=== PATIENT | female | born 1945 | race Caucasian/White ===

== ENCOUNTER 2016-07-06 12:31 | Inpatient (IN) | payer OTHER ==
[~2016-07-06] VITALS: Ht 157.4 cm; Wt 75.5 kg
--- NOTE | ~2016-07-06 | PR ---
[place], [place] PROGRESS NOTE NAME: REJI MENDOSA UNIT #: [id number] ROOM: 523 DOCTOR: RAMIRO MONTERO MD BIRTHDATE: [birth year] DOS: 07/10/2016 SUBJECTIVE: The patient was seen and examined on 07/10/2016. She has been comfortably resting on the bed for this patient. She has been noted with significant coughing, which has been noted to be severe and nonproductive with increased wheezing from yesterday. She has not been noted with any symptoms of chest pain or any abdominal pain. OBJECTIVE: VITAL SIGNS: For the patient which have been recorded show the temperature of the patient noted as normal, respiratory rate 20, heart rate 81, blood pressure 150/75. The pulse oxygen saturation of the patient was recorded as 97% on room air. HEENT: Showed no acute change. NECK: Supple. CARDIOVASCULAR: S1, S2 are audible. LUNGS: With diffuse expiratory wheezing noted in the lungs bilaterally. There were no crackles heard. ABDOMEN: Soft, nontender. EXTREMITIES: Show no edema, clubbing, or cyanosis. LABORATORY DATA: The BUN and creatinine were noted as normal today. IMPRESSION: The patient with acute tracheobronchitis for this patient was noted at the present time with persistent respiratory symptoms. Preliminary culture of the sputum for the patient from the shows normal karen. Final culture results were pending. The symptoms remained persistent with severe coughing without any sputum expectoration. PLAN OF TREATMENT: Bronchoscopy was suggested for this patient to help clear the mucus impaction in the major airways and mucus plug because of current ineffective cough which has been noted to be quite severe. Other supportive therapy, plan and management to be continued as well. Usual care. Supportive care and therapy, plan of management. Further treatment changes will be done based on the progression of the illness. N.p.o. past midnight status of the patient has been ordered for this patient for bronchoscopy, which was planned to be done tomorrow. [place], [place] PROGRESS NOTE NAME: REJI MENDOSA UNIT #: [id number] ROOM: 523 DOCTOR: RAMIRO MONTERO MD BIRTHDATE: [birth year] RAMIRO CARDENAS MD CM:PNTRANS [id number] 1 RAMIRO LEES MD 07/11/16 0303 interface
--- NOTE | ~2016-07-06 | PR ---
[place], [place] PROGRESS NOTE NAME: [id number] UNIT #: [id number] ROOM: 523 DOCTOR: RONALD LEES MD,RAMIRO BIRTHDATE: [birth year] DOS: 07/13/2016 PULMONARY PROGRESS NOTE SUBJECTIVE: She has been currently assessed from the GI workup for the anemia and will be undergoing endoscopy assessment. She has been noted with continued gradual reduction and improvement in symptoms of coughing, wheezing and shortness of breath at this time. Denies symptoms of abdominal pain. OBJECTIVE: VITAL SIGNS: For the patient which has been recorded shows the temperature noted as normal. The respiratory rate recorded at 20, heart rate 66, blood pressure 152/68. The pulse oxygen saturation of the patient was recorded as 97% on room air. HEENT: Examination shows head was atraumatic. Eyes, nonicterus. NECK: Supple. CARDIOVASCULAR: S1, S2 is audible. LUNGS: Noted without any crackles. Occasional wheezing was present. ABDOMEN: Soft with moderate obesity. Bowel sounds present. EXTREMITIES: Shows no edema. IMPRESSION: 1. The patient with gradual and progressive resolution of acute exacerbation of chronic obstructive pulmonary disease and acute tracheobronchitis gradually and progressively. 2. Anemia which has been currently being considered and assess for additional assessment with the endoscopy. PLAN OF TREATMENT: Continuation of current therapy, plan and management as previously. Usual care. All other supportive care, therapy, plan and management. Gradual reduction of the steroids will be continued. The dose of Solu-Medrol will be decreased to 40 mg once a day from today. RAMIRO CARDENSA MD CM:PNTRANS [id number] RAMIRO LEES MD 07/13/16 1739 interface
--- NOTE | ~2016-07-06 | O ---
[place], [place] OPERATIVE NOTE NAME: [id number] UNIT #: [id number] ROOM: 523 DOCTOR: GIACOMO BROWN MD BIRTHDATE: [birth year] DOS: 07/13/2016 GASTROENDOSCOPIC REPORT INDICATION: The patient has presented with dyspepsia, epigastric distress, undergoing investigation. PROCEDURE: Today's procedure part of investigation is panendoscopy plus biopsy. PREMEDICATION: Versed and Diprivan. SCOPE: Olympus forward-viewing gastroscope Q10 video. REPORT: After putting the patient in the left lateral position and after application of lubricant to the scope, the scope was introduced. Thereafter, under direct visualization, I advanced through the length of esophagus without difficulty. Distal esophagitis, hiatal hernia, distal esophageal erosions were noticed. Gastritis identified, this is watermelon gastritis pattern. Biopsy obtained. Duodenal bulb, second and third part within normal limits. The patient extubated, tolerated the procedure well. IMPRESSION: Watermelon gastritis, hiatal hernia, distal esophagitis and distal esophageal erosions. PLAN AND DISCUSSION: Protonix 40 mg daily would suffice, supportive management, soft diet and clinical reassessment. GIACOMO BROWN MD CM:OPRECORD:OPERATIVE NOTE [id number] GIACOMO BROWN MD 07/13/16 1719 interface
--- NOTE | ~2016-07-06 | WRIGHTHP ---
[place], [place] PATIENT HISTORY AND PHYSICAL EXAM NAME: REJI MENDOSA [facility] #: [id number] UNIT #: [id number] ROOM: H2020 DOCTOR: RUSS REYNOSO MD BIRTHDATE: [birth year] DOS: 07/06/2016 CHIEF COMPLAINTS: Shortness of breath, cough and phlegm. HISTORY OF PRESENT ILLNESS: This is 70 years old patient with known COPD, presented to the office with symptoms of respiratory failure. Her face is very pale looking and she is having difficulty in breathing. She has been short of breath for 3 days, she is bringing up phlegm and has started passing blood also with the phlegm. The patient at this time is being admitted to the hospital and she will be sent to ER as hospital beds are full. PAST MEDICAL HISTORY: Significant for: 1. Hypertension with diastolic dysfunction. 2. Hyperlipidemia. 3. COPD. 4. Osteoporosis. 5. Tobacco abuse in the past. 6. Coronary artery disease. The patient had acute inferior wall myocardial infarction on 12/12/2013. Stent was placed in RCA at [facility] by . The patient had catheterization done on 03/27/[address] Henson. 7. She has peripheral arterial disease and she has seen symptoms of intermittent claudication and tibial artery disease. The patient had seen Dr. Hardwick in 12/2013. 8. She has right knee osteoarthritis. 9. CKD with creatinine of 1.2 and EGFR was 47. The patient has left kidney atrophy as well on renal ultrasound. 10. EMG study was normal and arterial Doppler of the lower extremity was abnormal as discussed above. PAST SURGICAL HISTORY: Hysterectomy; carpal tunnel surgery; tonsillectomy and tennis elbow and steel plate in elbow, put in 03/2014. FAMILY HISTORY: Father of heart attack and mother of cancer. She has 2 sisters and 4 daughters. The 4 daughters are healthy. One brother . All sisters are healthy. She is not smoking anymore. MEDICATIONS: 1. Calcium plus vitamin D 600-200 one tablet daily. 2. Claritin-D 24 hours 10-40 mg daily. 3. Windsor, the patient is not taking that. 4. Melatonin 10 mg daily. 5. Neurontin 100 mg 3 times a day. 6. Pravachol 20 mg daily. 7. Lisinopril 10 mg daily. 8. Imdur 30 mg daily. 9. Aspirin 81 mg daily. 10. Metoprolol 25 mg twice a day. 11. Ventolin HFA 2 puffs b.i.d. p.r.n. 12. Symbicort 160/40 one inhalation twice a day. 13. Zantac 150 mg twice a day. [place], [place] PATIENT HISTORY AND PHYSICAL EXAM NAME: REJI MENDOSA [facility] #: [id number] UNIT #: [id number] ROOM: H2020 DOCTOR: RUSS REYNOSO MD BIRTHDATE: [birth year] PHYSICAL EXAMINATION: VITAL SIGNS: Blood pressure is 110/60, heart rate 75, temperature 98.8, BMI is 30.18 and oxygen saturation 98%. HEENT: Head is normocephalic and atraumatic. Eyes: Pupils are equal, round and reactive to light. Extraocular movements are intact. Ear, nose, and throat: No discharge noted. NECK: No JVD, no lymphadenopathy and no thyromegaly. CHEST: Clinically clear to auscultation bilaterally. HEART: S1 and S2, regular rate. No murmur, gallop or rub. LUNGS: The patient has decreased breath sounds and bilateral expiratory wheezes. ABDOMEN: Soft and nontender. EXTREMITIES: No cyanosis, clubbing or edema. NEUROLOGIC: No focal deficit. REVIEW OF SYSTEMS: The 10-point review of systems shows patient has nasal discharge. She has cough and wheezing. She has phlegm and hemoptysis, nausea and vomiting also. Rest of the 10-point review of systems is unremarkable. ASSESSMENT: At this time is: 1. Chronic obstructive pulmonary disease exacerbation. 2. Respiratory failure. 3. Hemoptysis. 4. Coronary artery disease. 5. Depression. The patient is off Celexa now. 6. Hypertension. 7. Peripheral vascular disease. 8. Gastroesophageal reflux disease. 9. Osteoarthritis. PLAN OF CARE: 1. The patient will be admitted to the hospital. We will get CMP, CBC with differential, sputum Gram stain culture and sensitivity and chest x-ray, PA and lateral. We will start the patient on Rocephin 1 g daily, Zithromax 500 daily and Solu-Medrol 125 mg b.i.d. Give Tylenol 500 mg before giving Solu-Medrol as the patient gets headaches from them. 2. Depression: Both Celexa and trazodone are stopped. Depression is controlled at this point. 3. Left hip pain is also controlled. The patient is not taking Windsor anymore. 4. Insomnia: We will continue melatonin. 5. For left leg pain, continue Neurontin. 6. For hyperlipidemia, continue Pravachol. 7. For hypertension, continue lisinopril. 8. For coronary artery disease, continue Imdur, aspirin and metoprolol. 9. For COPD, continue Symbicort. 10. For GERD, continue Zantac. We will follow the patient in the hospital. At this point, the patient is being [place], [place] PATIENT HISTORY AND PHYSICAL EXAM [facility]: [id number] UNIT #: [id number] ROOM: [facility] DOCTOR: RUSS REYNOSO MD BIRTHDATE: [birth year] admitted to the hospital. RUSS REYNOSO MD CM:HISPHYS:PATIENT HISTORY AND PHYSICAL EXAMINATION [phone] RUSS REYNOSO MD 07/06/16 1414 interface
--- NOTE | ~2016-07-06 | O ---
[place], [place] OPERATIVE NOTE NAME: [facility] [id number] UNIT #: [id number] ROOM: 523 DOCTOR: GIACOMO BROWN MD BIRTHDATE: [birth year] DOS: 07/13/2016 GASTROENDOSCOPIC REPORT INDICATIONS: The patient has presented with dyspepsia, epigastric distress, abdominal pain, anemia. The patient with respiratory insufficiency, status post bronchoscopy and status post management. PROCEDURE: Today's procedure part of investigation is panendoscopy and colonoscopy. PREMEDICATION: Versed and Diprivan. SCOPE: Olympus forward-viewing colonoscope 10L video. REPORT: After putting the patient in the left lateral position and after application of lubricant to rectal pouch and digital examination, scope was introduced. Thereafter, under direct visualization, I advanced through the length of colon without difficulty. Base of the cecum explored, appendiceal orifice identified, and ileocecal valve was defined. No acute pathology seen. The patient was gradually extubated and tolerated the procedure well. IMPRESSION: Normal colonoscopic examination. We are going to proceed with panendoscopy. GIACOMO BROWN MD CM:OPRECORD:OPERATIVE NOTE 1648 16 GIACOMO BROWN MD 07/13/16 171 interface
--- NOTE | ~2016-07-06 | PR ---
[place], [place] PROGRESS NOTE NAME: REJI MENDOSA UNIT #: [id number] ROOM: [facility] DOCTOR: J LUIS WAGGONER MD BIRTHDATE: [birth year] DOS: 07/14/2016 SUBJECTIVE: This patient was admitted to the hospital because of GI problems with acute bronchitis and shortness of breath. Dr. Chambers evaluated her LV function was normal. She had endoscopy done which showed esophagitis, and watermelon gastritis. She had stent deployed about 3 years ago following an acute myocardial infarction for totally occluded vessel. Daughter tells me diagnostic heart catheterization done a year later which showed patent stent and some degree of coronary stenosis. She was admitted to the hospital because of exertional shortness of breath, when I talked with her, it seems like she has some anginal symptoms as well. Couple of times she had noticed when she walked back from the garage into her house she developed right shoulder area discomfort which was relieved by rest and this is symptoms she had before stent was deployed. She has not had any resting symptoms. No palpitation, dizziness. OBJECTIVE: VITAL SIGNS: Pulse is regular. Blood pressure is fine. NECK: JVP is normal. LUNGS: Fairly clear. EXTREMITIES: There is no edema in the lower extremities. CARDIOVASCULAR: Reveals no murmurs. Blood pressure fine. LABORATORY DATA: Her troponin I level was above normal. IMPRESSION: This patient with known coronary artery disease has some exertional angina and had mildly elevated troponin I level, which may be from coronary artery stenosis; type 2 myocardial infarction, i.e., supply and demand imbalance may be responsible for this as well. I discussed my impression with Dr. Chambers and he will be talking to her nurse regarding further plan. I discussed this with her daughter as well. [place], [place] PROGRESS NOTE NAME: REJI MENDOSA UNIT #: [id number] ROOM: [facility] DOCTOR: J LUIS WAGGONER MD BIRTHDATE: [birth year] J LUIS WAGGONER MD CM:PNTRANS 0736 0928 J LUIS WAGGONER MD 07/14/16 0929 interface
--- NOTE | ~2016-07-06 | CON ---
[place], [place] REPORT OF CONSULTATION NAME: REJI MENDOSA [facility] #: [id number] UNIT #: [id number] ROOM: 523 DOCTOR: RAMIRO MONTERO MD BIRTHDATE: [birth year] DOS: 07/09/2016 PULMONARY CONSULTATION REPORT REQUESTING PHYSICIAN: Gregg Mccann M.D. REASON FOR CONSULTATION: Assess the patient for acute exacerbation of COPD. HISTORY OF PRESENT ILLNESS: This 70-year-old white female presented to the Emergency Room and admitted to the hospital on 07/06/2016. The patient has developed symptoms of increased shortness of breath associated with coughing that started 3-4 days prior to admission to the hospital. The patient was seen by the primary care physician. The patient noted with acute exacerbation of COPD and was admitted to the hospital for further medical management. The symptoms of the patient have been noted quite worse with increased wheezing, coughing and shortness breath for the patient. The patient stated symptoms have been noted partially improved in the past couple of days. However, still noted with coughing, which has been noted some. Sputum expectoration, yellowish in color this morning. The wheezing, the patient described to be decreased. Shortness of breath was also noted partially improved. She denies any symptoms of chest pain. Denies symptoms of hemoptysis. REVIEW OF SYSTEMS: CONSTITUTIONAL SYMPTOMS: Denies symptoms of fever or chills. EYES: Denies any symptoms of dryness of the eyes, discharge or pain. EARS, NOSE AND THROAT: Denies sore throat, hoarseness, otalgia, postnasal drainage or epistaxis. CARDIOVASCULAR SYSTEM: Denies anginal pain, edema or pain of the extremities for this patient or palpitations. GASTROINTESTINAL: Gastroesophageal reflux, which is noted acutely with nausea, vomiting, diarrhea, abdominal pain, hematemesis, melena and hematochezia. Denies any abnormal weight loss and history of dysphagia. GENITOURINARY: Denies dysuria, suprapubic pain or hematuria. SKIN: Denies any lesions or rashes. MUSCULOSKELETAL SYSTEM: No acute joint pain, redness or tenderness. CENTRAL NERVOUS SYSTEM: Denies dizziness, headache, diplopia and migraine headaches. Remaining systems were reviewed with the patient and they were noted all negative. PAST MEDICAL HISTORY: The patient was reported with history of: 1. COPD/centrilobular emphysema. 2. Frozen shoulder. 3. Hyperlipidemia. 4. Essential hypertension. 5. Coronary artery disease with previous myocardial infarction. 6. Osteopetrosis. PAST SURGICAL HISTORY: 1. Carpal tunnel repair. [place], [place] REPORT OF CONSULTATION [id number] UNIT #: [id number] ROOM: 523 DOCTOR: RONALD LEES MD,RAMIRO BIRTHDATE: [birth year] 2. Hysterectomy. 3. Tonsillectomy. 4. Appendectomy. 5. Cardiac catheterization and coronary stent insertion. 6. Surgery of the elbows. 7. Right wrist surgery. SOCIAL HISTORY: The patient stated that she is , has 4 children. She has been noted with history of tobacco use since the age of [age] years old, 2 packs of cigarettes per day, that was discontinued in 2013. She had worked in the for 20 years as well. FAMILY HISTORY: Both parents have been . Mother from complication related to colon cancer. History of diabetes and coronary artery disease has been described. MEDICATIONS: Home medications, which have been noted for this patient on admission, are: 1. Symbicort HFA inhaler. 2. Aspirin. 3. Calcium carbonate with vitamin D. 4. Plavix. 5. Neurontin. 6. Imdur. 7. Lisinopril. 8. Claritin-D. 9. Melatonin. 10. Metoprolol tartrate. 11. Pravastatin. 12. Zantac. DRUG ALLERGIES: THE PATIENT WAS NOTED WITH ALLERGIES TO: 1. PENICILLIN. 2. SOLU-MEDROL CAUSING MUSCLE ACHES AND HEADACHES. 3. LIDOCAINE. PHYSICAL EXAMINATION: GENERAL: This is a 70-year-old female, who has been currently sitting on the bed without any acute distress. VITAL SIGNS: Height for the patient noted as 5 feet and 2 inches, weight is 166 pounds and BMI 30.4. Other vital signs shows a normal temperature, respiratory rate of 18-20, heart rate of 72-84, blood pressure 153/85-132/74 this morning recorded, intake is 2900 mL and the output is 1700 mL and pulse oxygen saturation on room air 90%-93% saturation recorded. HEENT AND NECK: Uogk-qy-andpafju obesity. Head was atraumatic. Eyes: No icterus. Neck was supple. CARDIOVASCULAR: S1 and S2 are audible. LUNGS: For this patient noted with moderate reduction of the breath sounds and nvkd-em-vlfyjvso expiratory wheezing in the lungs. There were no crackles. ABDOMEN: Soft and nontender. Bowel sounds present. [place], [place] REPORT OF CONSULTATION NAME: REJI MENDOSA UNIT #: [id number] ROOM: 523 DOCTOR: RONALD LEES MD,RAMIRO BIRTHDATE: [birth year] CENTRAL NERVOUS SYSTEM: Cranial nerves 2 through 12 intact. No focal deficit. MUSCULOSKELETAL: No deformities. SKIN: No lesions or rashes. LABORATORY EVALUATION AND RADIOGRAPHIC EVALUATION: CBC of the patient on 07/06/2016: WBC count of 4.6, hemoglobin 11.5 and hematocrit 35.7 with normal platelet count. The lactic acid noted at 0.9. Influenza A and B nasal washing antigens were noted negative on admission on 07/06/2016. CMP on 07/06/2016 on admission: Normal BUN and creatinine and electrolytes as well as a CK-MB and troponin. The CBC of the patient that was done yesterday: WBC count was 14.2, hemoglobin 10.9, hematocrit 33.9 and platelet count was normal. The blood cultures reported no bacterial growth for the patient since admission on 07/06/2016. CBC of the patient this morning: WBC count is 15.7, hemoglobin 10.7, hematocrit 33.6 and platelet count is normal. The culture of the sputum preliminary was pending rather. Gram stain of 07/08/2016 for this patient noted with many white blood cells, moderate epithelial cells and moderate Gram-positive cocci in pairs, chains and clusters. Chest x-ray of the patient that was done for the patient, 2 view, on 07/06/2016 was noted with hyperinflation without any acute pulmonary infiltration. IMPRESSION: 1. This is a patient who I am currently treating with acute exacerbation of chronic obstructive pulmonary disease with acute tracheobronchitis. The patient reported pathology to Solu-Medrol, but currently getting Solu-Medrol at 125 mg b.i.d. without any acute side effects at this time noted. 2. History of previous nicotine abuse for the patient until 2013. 3. History of coronary artery disease and others. 4. Leukocytosis related to use of the corticosteroids. PLAN OF TREATMENT: Reduce the Solu-Medrol dose for the patient gradually based on the improvement in the symptoms. Monitor results of the sputum culture. Continue bronchodilators administration. Further treatment changes will be done based on the progression of the illness. The patient has been getting broad spectrum intravenous antibiotics including meropenem and vancomycin that might need to be step down for this patient for the coverage of very broad spectrum intravenous antibiotics based on the culture results and modification. Other supportive therapy, plan and management to be continued. Usual care. If necessary, consider fiberoptic bronchoscopy for patient for further assessment of current problem if agreed by the patient. Thank you for allowing me to participate in the care of this patient. [place], [place] REPORT OF CONSULTATION NAME: REJI MENDOSA UNIT #: [id number] ROOM: 523 DOCTOR: RAMIRO MONTERO MD BIRTHDATE: [birth year] RAMIRO CARDENAS MD CM:CONSTR:REPORT OF CONSULTATION 1550 07/10/16 1010 interface
--- NOTE | ~2016-07-06 | PR ---
[place], [place] PROGRESS NOTE NAME: REJI MENDOSA [facility] #: [id number] UNIT #: [id number] ROOM: 523 DOCTOR: YANELIS GARCIA MD BIRTHDATE: [birth year] DOS: She is admitted to hospital with acute exacerbation of COPD with emphysema with centrilobular pneumonia, frozen shoulder, hyperlipidemia, essential hypertension, coronary heart disease, and osteoporosis. The patient is having more wheezing today having bilateral rhonchi and occasional crepitation and has been seen by Dr. Núñez, multimedia teacher and who is planning to do her bronchoscopy tomorrow. Her sputum culture and sensitivity grew normal bacteria. Creatinine level is 1.1 and GFR is 55, improvement and her blood pressure is 134/80, pulse is 81, respirations 20, temperature 98.2. The patient is not showing much improvement with the bronchoscopy tomorrow. This patient has encouraged to follow. YANELIS GARCIA MD CM:PNTRANS 1414 YANELIS GARCIA MD 07/11/16 0218 interface
--- NOTE | ~2016-07-06 | PR ---
[place], [place] PROGRESS NOTE NAME: REJI MENDOSA UNIT #: [id number] ROOM: 523 DOCTOR: RAMIRO MONTERO MD BIRTHDATE: [birth year] DOS: SUBJECTIVE: She was seen and examined on 07/12/2016. She has been noted with reduction of the respiratory complaints for the patient after the bronchoscopy of yesterday with removal of multiple plugs of mucus. Shortness of breath has been also improving. The wheezing has been noted decreased. OBJECTIVE: VITAL SIGNS: Normal temperature, respiratory rate 20, heart rate of 88, blood pressure 140/72. HEENT: Shows no acute change. NECK: Supple. CARDIOVASCULAR SYSTEM: S1, S2 is audible. No added sounds. LUNGS: Noted with mild expiratory wheezing noted in lungs bilaterally with improvement in air entry in general. No crackles. ABDOMEN: Soft, nontender. LABORATORY DATA: CBC: WBC count was normal, hemoglobin 10.8, hematocrit 33.8, platelet count was normal. Barium culture of the bronchial washing was noted as normal karen of the patient. Final culture results were pending. BMP: BUN 26, creatinine was normal. Glucose mildly elevated. Gram stain of the bronchial washing was yesterday with moderate white blood cells, few epithelial cells without any organisms seen. IMPRESSION: 1. Resolving acute exacerbation of chronic obstructive pulmonary disease, acute tracheobronchitis with reduction of respiratory symptoms were noted after the bronchoscopy. 2. Acute bronchitis as well. PLAN OF TREATMENT: Reduce the Solu-Medrol dose for this patient to 40 mg b.i.d. 160 mg b.i.d. Monitoring culture results. The patient was encouraged about ambulation. Other supportive therapy, plan of management as well. Usual treatment plan of care. [place], [place] PROGRESS NOTE NAME: REJI MENDOSA UNIT #: [id number] ROOM: 523 DOCTOR: RAMIRO MONTERO MD BIRTHDATE: [birth year] RAMIRO CARDENAS MD CM:PNTRANS 1017 1210 RAMIRO LEES MD 07/12/16 1211 interface
--- NOTE | ~2016-07-06 | PR ---
[place], [place] PROGRESS NOTE NAME: REJI MENDOSA [facility] #: [id number] UNIT #: [id number] ROOM: 523 DOCTOR: YANELIS GARCIA MD BIRTHDATE: [birth year] DOS: 07/09/2016 SUBJECTIVE: The patient has been admitted to the hospital with acute COPD, emphysema with acute exacerbation, hypertension, hyperlipidemia, and coronary heart disease, and she is feeling better. She does not seem to be in any distress and no chest pain. Her sputum culture showed many white blood cell, moderate epithelial cells. Culture report is pending. CBC showed white count 15,700, hemoglobin 10.7, hematocrit 33.6, 83% , 7%, lymphocyte and 13% neutrophils. Blood culture did not grow any bacteria, and the patient is showing improvement. OBJECTIVE: VITAL SIGNS: Blood pressure is 148/80, pulse 72, respirations 20, temperature 97.5. CHEST: Occasional rhonchi with increased expiration. No crepitation. HEART: Regular. ABDOMEN: Soft. YANELIS GARCIA MD CM:PNTRANS [id number] YANELIS GARCIA MD 07/10/16 0034 interface
--- NOTE | ~2016-07-06 | CON ---
[place], [place] REPORT OF CONSULTATION NAME: REJI MENDOSA [facility] #: [id number] UNIT #: [id number] ROOM: 523 DOCTOR: GIACOMO BROWN MD BIRTHDATE: [birth year] DOS: 07/10/2016 GASTROENDOSCOPIC REPORT HISTORY OF PRESENT ILLNESS: A 70-year-old who has presented with respiratory insufficiency, shortness of breath, cough, and cold symptomatology. The patient has symptoms of acid reflux. The patient has been started on PPI, and she has significantly responded to PPI therapy. Her initial white blood cell was 4.6, H and H of 11 and 35. Differential within normal limits. Lactic acid is 0.9. Comprehensive metabolic panel, electrolyte balance, BUN and creatinine, and liver function tests were within normal limits. She continued with cough and cold symptomatology. Pulmonary Medicine, Dr. Núñez, has been consulted, and plans for a bronchoscopy. Initial H and H were 11.5 and 35, has dropped to 10 and 33, which are stable. Blood cultures have been unremarkable. Labs and records have been reviewed. Sputum culture has been sent. BUN and creatinine of 22 and 1.0. PAST MEDICAL HISTORY: Associated with COPD, coronary artery disease, hypertension, obesity, myocardial infarction, osteoporosis, and persistent dyspepsia. PAST SURGICAL HISTORY: Associated with hysterectomy, tonsillectomy, carpal tunnel, right wrist repair, appendectomy, cardiac stents. SOCIAL HISTORY: Nonalcohol consumer. Past smoker. FAMILY HISTORY: Noncontributory. REVIEW OF SYSTEMS: HEENT: Denies double vision, blurred vision. RESPIRATORY: Admits to shortness of breath. CARDIOVASCULAR: Denies chest pain. DIGESTIVE SYSTEM: Persistent dyspepsia, on ranitidine 75 mg b.i.d. The patient has been as well on multi other medications reviewed. PHYSICAL EXAMINATION: VITAL SIGNS: Stable. HEENT: Head is normocephalic, nontraumatic. Mouth and buccal mucosa are benign. NECK: Supple, no thyromegaly. CHEST: Symmetric anatomy, anteroposterior wheeze, cough. HEART: Normal sinus rhythm, no gallop, no murmur. ABDOMEN: Obese, soft. No hepato-organomegaly. Bowel sounds present. EXTREMITIES: No cyanosis, no pedal edema. NEUROLOGIC: Alert and oriented to time, place, and person. Sensory, motor intact. Cranial nerves 2-12 intact. IMPRESSION: Reflux symptomatology, dyspepsia. The patient has been kept on Protonix in the hospital, her symptomatology has responded. The patient with a history of chronic obstructive pulmonary disease, persistent cough, is [place], [place] REPORT OF CONSULTATION NAME: REJI MENDOSA UNIT #: [id number] ROOM: 523 DOCTOR: GIACOMO BROWN MD BIRTHDATE: [birth year] undergoing a bronchoscopy tomorrow hopefully. Other adjunctive diagnoses are hypertension, coronary artery disease, chronic obstructive pulmonary disease, hyperlipidemia, hypertension have been all recognized. PLAN AND DISCUSSION: I will await bronchoscopy and pulmonary stabilization before we consider a future endoscopic assessment of upper tract for persistent dyspepsia. Meanwhile, we will keep her on Protonix 40 mg p.o. as outpatient when she is discharged. GIACOMO BROWN MD CM:CONSTR:REPORT OF CONSULTATION 1311 07/11/16 0048 interface
--- NOTE | ~2016-07-06 | CON ---
[place], [place] REPORT OF CONSULTATION NAME: REJI MENDOSA [facility] #: [id number] UNIT #: [id number] ROOM: 523 DOCTOR: SIOMARA ANDREW MD BIRTHDATE: [birth year] DOS: 07/13/2016 HISTORY OF PRESENT ILLNESS: The patient is a 70-year-old patient apparently being asked for evaluation of shortness of breath. A 70-year-old female apparently with a history of significant peripheral arterial disease, status post intervention with COPD. The patient admitted with significant shortness of breath. The patient has been here for the last almost one week now. The patient was admitted with wheezing and coughing and continued shortness of breath. I was consulted for cardiac evaluation of patient. I did a stat echocardiogram, and I reviewed at the bedside done today showed an excellent ejection fraction of about 60-65%. Small posterior pericardial effusion, right ventricular systolic function is also preserved. No significant mitral regurgitation. No obvious pulmonary hypertension. PAST MEDICAL HISTORY: COPD, emphysema, frozen shoulder, hyperlipidemia, peripheral arterial disease, coronary artery disease with previous CA with no evidence of any wall motion abnormalities. PAST SURGICAL HISTORY: Appendectomy, cardiac catheterization and coronary stent insertion, wrist surgery. SOCIAL HISTORY: The patient has a history of heavy tobacco abuse since age of 30. Two packs per day and discontinued in 2013. HOME MEDICATIONS: Aspirin, Plavix, Imdur, lisinopril, pravastatin, metoprolol, and Zantac. ALLERGIES: PENICILLIN. REVIEW OF SYSTEMS: CONSTITUTIONAL: No fever, no chills. HEENT: No visual disturbances or hearing problems. CARDIOVASCULAR: No chest discomfort. RESPIRATORY: Does have significant shortness of breath. GASTROINTESTINAL: No nausea, no vomiting. GENITOURINARY: No dysuria, hematuria. PHYSICAL EXAMINATION: VITAL SIGNS: Blood pressure today is 150/80. She is in sinus rhythm. HEENT: Unremarkable. NECK: Supple, no JVD. LUNGS: Good air entry, very minimal wheezing. HEART: Sounds are regular. ABDOMEN: Soft, nontender. NEUROLOGIC: Stable. LABORATORY DATA: Reviewed the echocardiogram at the bedside showed an excellent ejection fraction, no wall motion abnormalities. Sodium 142, potassium 4.3, creatinine is normal. Hemoglobin 10.8, hematocrit 33.8, platelet count is normal. Echo showed an excellent ejection fraction. [place], [place] REPORT OF CONSULTATION NAME: REJI MENDOSA [facility] #: [id number] UNIT #: [id number] ROOM: 523 DOCTOR: SIOMARA ANDREW MD BIRTHDATE: [birth year] IMPRESSION: The patient with known coronary artery, hypertension, hyperlipidemia, dyspepsia. Her last hemoglobin is 10.5. The patient to undergo EGD today. RECOMMENDATIONS: Continue the present care. Continue the beta blockers, continue the lipid lowering agents. Continue aspirin and Plavix when it is feasible. Cardiac status is stable, and we will followup. The patient has significant peripheral arterial disease and needs another intervention, which will be assessed at a later date. SIOMARA ANDREW MD CM:CONSTR:REPORT OF CONSULTATION 0957 07/13/16 1038 interface
--- NOTE | ~2016-07-06 | PR ---
[place], [place] PROGRESS NOTE NAME: REJI MENDOAS [facility] #: [id number] UNIT #: [id number] ROOM: [facility] DOCTOR: RONALD LEES MD,RAMIRO BIRTHDATE: [birth year] DOS: 07/14/2016 The patient was noted on 07/14/2016. She had developed hypotension yesterday. The patient initially developed chest pain and was given the nitroglycerin tablet. For the hypertension management she was transferred to intensive care unit. Cardiac enzymes were noted which appeared to be 2/3 sets. The patient noted with mild elevation in troponin. Blood pressure of the patient has been resolved at this time. There are no symptoms of chest pain or abdominal pain. She ____ endoscopy for the patient that was done by Dr. Gusman yesterday. Watermelon gastritis noted ____ induced esophagitis and esophageal erosions with the endoscopy. This morning, the patient has been noted comfortable at this time. OBJECTIVE: VITAL SIGNS: Normal temperature, respiratory rate 19, heart rate 66, blood pressure 104/54. Pulse oxygen saturation of the patient on room air, noted 97% on 3 liters nasal cannula 99% saturation. HEENT: Showed no acute change. NECK: Supple. CARDIOVASCULAR: S1, S2 audible. LUNGS: noted without any crackles. No wheezing. ABDOMEN: Soft, nontender. LABORATORY DATA: Troponin yesterday for the patient first set was noted normal. CPK normal, second set of CK-MB and troponin yesterday and troponin mildly elevated at 0.108. The last troponin for the patient which were done this morning, the troponin noted minimal elevation 0.079. CK-MB, troponin remains normal in all of the labs. IMPRESSION: Possibility of non-ST segment elevation myocardial infarction with angina resolving acute exacerbation of chronic obstructive pulmonary disease with acute tracheobronchitis progressively. PLAN OF TREATMENT: No changes in plan of management from pulmonary standpoint, the patient already getting Solu-Medrol 40 mg, which will be further tapered patient upon discharge, the patient has been currently planned for transfer to one of the hospitals in [place], [place] as requested by the patient and the family members request. In the meantime, continue current supportive plan and management as well. Usual care. All other treatment as in progress. [place], [place] PROGRESS NOTE NAME: REJI MENDOSA UNIT #: [id number] ROOM: [facility] DOCTOR: RAMIRO MONTERO MD BIRTHDATE: [birth year] RAMIRO CARDENAS MD CM:PNTRANS [id number] RAMIRO LEES MD 07/14/16 1122 interface
--- NOTE | ~2016-07-06 | CON ---
[place], [place] REPORT OF CONSULTATION NAME: REJI MENDOSA UNIT #: [id number] ROOM: 523 DOCTOR: KEVIN BROOKSGIACOMO BIRTHDATE: [birth year] DOS: GASTROENDOSCOPIC REPORT HISTORY OF PRESENT ILLNESS: The patient presented with chief complaint of shortness of breath and dyspepsia; on steroids and antibiotics. Initially, she was admitted with white blood cell of 4.6, H and H of 11 and 35. Lactic acid of 0.9. Rapid troponin and flu negative. Comprehensive metabolic panel, electrolytes balanced. Liver function test normal. Troponin within normal limits. Chest x-ray, no acute cardiopulmonary process was noticed. Urine culture is negative. Blood cultures remain negative. PAST MEDICAL HISTORY: Associated with hyperlipidemia, COPD, hypertension, osteoporosis, coronary artery disease, peripheral vascular disease, and chronic renal insufficiency. FAMILY HISTORY: Noncontributory. PAST SURGICAL HISTORY: Carpal tunnel, tonsillectomy, hysterectomy, elbow repair. MEDICATIONS: List has been reviewed. The patient has been on Zantac 150 mg b.i.d. ALLERGIES: TO LIDOCAINE, PENICILLIN AND SOLU-MEDROL. REVIEW OF SYSTEMS: In general: HEENT: Denies double vision or blurred vision. RESPIRATORY: Admits to shortness of breath. CARDIOVASCULAR: Denies chest pain. DIGESTIVE SYSTEM: Dyspepsia. PHYSICAL EXAMINATION: VITAL SIGNS: Stable. HEENT: Head normocephalic, nontraumatic. Mouth and buccal mucosa benign. NECK: Supple. No thyromegaly, no cervical lymphadenopathy. CHEST: Symmetric anatomy, equal expansion. Few scattered rhonchi. HEART: Normal sinus rhythm, no gallop, no murmur. ABDOMEN: Soft. No hepato-organomegaly. Bowel sounds present. No pulsatile mass. EXTREMITIES: No cyanosis. No pedal edema. NEUROLOGIC: Alert, oriented to time, place and person. IMPRESSION: Dyspepsia secondary to multi-medications including aspirin and steroids. OTHER ADJUNCTIVE DIAGNOSES: Bronchitis as identified in past medical and surgical history. PLAN AND DISCUSSION: Keeping this patient on Protonix 40 mg IV every day, [place], [place] REPORT OF CONSULTATION NAME: REJI MENDOSA UNIT #: [id number] ROOM: 523 DOCTOR: KEVIN BROOKS,GIACOMO BIRTHDATE: [birth year] addition of Carafate 1 g q.i.d. while inpatient and to staff genetic counselor the adverse effects of steroids and aspirin on her. Supportive management and follow up on H and H. We are going to make arrangement for this patient as outpatient to follow up for colonic screening as well as dyspepsia management. Thank you very much indeed. Sincerely, GIACOMO BROWN MD CM:CONSTR:REPORT OF CONSULTATION 2352 07/11/16 0647 interface
--- NOTE | ~2016-07-06 | PROC NOTE ---
[place], [place] PROCEDURE NOTE [id number] #: [id number] ROOM: 523 DOCTOR: RONALD LEES MD,RAMIRO BIRTHDATE: [birth year] DOS: 07/11/2016 BRONCHOSCOPY NOTE PREOPERATIVE DIAGNOSES: The patient with persistent severe nonproductive cough with wheezing with maximum medical therapy for exacerbation of chronic obstructive pulmonary disease. POSTOPERATIVE DIAGNOSES: Multiple large plugs of mucous were removed from the endobronchial tree bilaterally causing the impaction of the endobronchial subsegments with findings of acute tracheobronchitis. PROCEDURE DESCRIPTION: Informed consent was obtained for the patient. The patient brought to the OR, placed in supine position. Conscious sedation administered by the Anesthesia Department. After achieving proper sedation, airway introduced into the mouth. Bronchoscope advanced into airway into laryngeal area. Epiglottis and vocal cords were seen. Bronchoscope advanced to vocal cord and tracheal lumen. Tracheal lumen for the patient was identified for this patient shows moderate amount of very thick mucoid secretions with small purulent secretion mixture. It was suctioned out to the rosemarie level. Right upper, right middle, right lower, left upper, lingula, and lower lobe bronchi were all examined, noted moderate to thick large plugs of the mucus causing impaction of the endobronchial subsegments bilaterally. All the secretions suctioned out clear with the help of normal saline wash, sent for culture. Procedure well tolerated by the patient without complications. Postoperative findings were discussed with the patient's daughter in the recovery room after the completion of procedure. RAMIRO CARDENAS MD CM:PROCNOTE:PROCEDURE NOTE 1214 [id number] RAMIRO LEES MD
--- NOTE | ~2016-07-06 | PR ---
[place], [place] PROGRESS NOTE [facility]: [id number] UNIT #: [id number] ROOM: 523 DOCTOR: RONALD LEES MD,RAMIRO BIRTHDATE: [birth year] DOS: 07/11/2016 SUBJECTIVE: The patient was seen and examined 07/11/2016. Currently noted n.p.o. past midnight. Bronchoscopy planned today. Continue with symptoms of significant wheezing, coughing and shortness of breath with current medical management. Denied symptoms of chest pain or any abdominal pain. OBJECTIVE: VITAL SIGNS: For the patient which were recorded showed the temperature of the patient noted as normal, respiratory rate of 17, heart rate of 69, blood pressure of 150/86. HEENT: Examination showed no acute change. NECK: Supple. CARDIOVASCULAR SYSTEM: S1, S2 is audible. LUNGS: Showed diffuse expiratory wheezing. The patient remains persistent. ABDOMEN: Soft, nontender, bowel sounds present. LABORATORY DATA: Culture of the sputum for the patient from the 10th of this month shows normal karen. PT, PTT for the patient and the platelet functions, which were done yesterday were noted all normal. IMPRESSION: Ongoing acute exacerbation of chronic obstructive pulmonary disease with acute tracheobronchitis. The patient has persistent respiratory symptoms with current maximal medical therapy. PLAN OF TREATMENT: Proceed with the bronchoscopy as planned. No other change in treatment at this time will be necessary. Other supportive plan of therapy, care management, any modification in the treatment plan to be done after bronchoscopy. RAMIRO CARDENAS MD CM:PNTRANS [id number] RAMIRO LEES MD 07/12/16 0152 interface
[~2016-07-06 12:31] MED LIST: ALBUTEROL0.09 MG/A1 IH; ALPHAGAN 5 ML5 ML OP; ASPIRIN81 M1 PO; ATIVAN1 MG PO; AZOPT 1% 10 ML5 ML INTRAOC; BACTRIM DS 8001 TA1 PO; BESIVANCE 5 ML5 ML OP; BP; CALCIUM500 MG PO; CIPRO500 MG PO; CLARITIN10 MG PO; CLOPIDOGREL75 MG PO; COMBIGAN 0.2%-010 ML OP; CORDROL20 MG PO; CRESTOR10 MG PO; CYMBALTA20 MG PO; DARVOCET N 1001 TAB PO; DELTASONE10 MG PO; DOXYCYCLINE100 M3 PO; DUONEB 3 MG/3 ML3 M1 NEB; DUONEB 3ML 3 MG/3 ML INH; DUREZOL 5 ML5 ML OP; FLEXERIL5 MG PO; HYDROCODONE BIT1 T11 PO; IMDUR SA30 MG PO; ISOSORBIDE DINI20 MG PO; LEVOFLOXACIN500 MG PO; LISINOPRIL HCTZ1 TA1 PO; LISINOPRIL/HCTZ1 TA4 PO; LISINOPRIL/HYDR1 TA1 PO; LISINOPRIL5 MG PO; Lopressor25 MG PO; METOPROLOL SUCC50 MG PO; METOPROLOL25 MG PO; MOTRIN800 MG PO; NAPROXEN220 MG PO; PLAVIX75 MG PO; PRAVASTATIN SOD10 MG PO; PRAVASTATIN SOD20 MG PO; PREDNISONE20 MG PO; PROLENSA3 ML OP; PROTONIX40 MG PO; SEPTRA DS 800 M1 TAB PO; SYMBICORT1 AE1 IH; SYMBICORT1 AE1 INH; TOPROL XL50 M1 PO; TYLENOL W/CODE480 ML PO; VICODIN 5-3001 EACH PO; VICODIN 5/500 505 MG PO; ZANTAC 7575 M1 PO; ZESTRIL10 MG PO; ZOLPIDEM10 MG PO
[2016-07-06] MEDS ORDERED: CLOPIDOGREL75 MG PO (12:37)
[2016-07-06] MEDS ORDERED: IMDUR SA30 MG PO (12:38)
[2016-07-06 13:15] LABS: BASO % 0.9 % (0.0-1.0); EOS # 0.4 10*3/uL (0.0-0.4); EOS % 7.9 % (1.0-4.0); HEMATOCRIT 35.7 % (37.0-47.0); HEMOGLOBIN 11.5 g/dl (12.0-16.0); LYMPH % 22.4 % (27.0-41.0); MEAN CELL VOLUME 89.7 fl (81.0-99.0); MEAN CORPUSCULAR HGB 28.9 pg (27.0-31.0); MEAN CORPUSCULAR HGB CONC 32.2 g/dl (33.0-37.0); MEAN PLATELET VOLUME 9.6 fl (9.6-12.3); MONO # 0.6 10*3/uL (0.1-1.0); MONO % 12.7 % (3.0-9.0); NEUT # 2.5 10*3/uL (2.3-7.9); NEUT % 55.2 % (47.0-73.0); PLATELET COUNT AUTOMATED 260 10*3/uL (130-400); RED BLOOD COUNT 3.98 10*6/uL (4.10-5.10); RED CELL DISTRI WIDTH 13.4 % (0-14.5); WHITE BLOOD COUNT 4.6 10*3/uL (4.8-10.8)
[2016-07-06 13:31] LABS: BILIRUBIN NEGATIVE (NEGATIVE); BLOOD 1+ (NEGATIVE); CLARITY CLEAR (CLEAR); COLOR YELLOW (YELLOW); GLUCOSE NEGATIVE (NEGATIVE); KETONE NEGATIVE (NEGATIVE); LEUKO ESTERASE NEGATIVE (NEGATIVE); NITRITE NEGATIVE (NEGATIVE); PH 6.5 (5.0-9.0); PROTEIN NEGATIVE (NEGATIVE); UROBILINOGEN 0.2 E.U./dl (0.2-1.0)
[2016-07-06 13:35] LABS: ALBUMIN 3.4 gm/dl (3.1-4.5); ALKALINE PHOSPHATASE 81 U/L (45-117); BILIRUBIN, TOTAL 0.2 mg/dl (0.2-1.0); BUN 16 mg/dl (7-24); CARBON DIOXIDE 25 mmol/L (21-32); CHLORIDE 107 mmol/L (98-107); EST GLOM FILT AFRICAN AMERICAN > 60 ml/min; GLUCOSE 96 mg/dL (65-99); POTASSIUM 4.2 mmol/L (3.5-5.1); SGOT/AST 24 IU/L (3-35); SGPT/ALT 60 U/L (12-78); SODIUM 142 mmol/L (136-145); TOTAL PROTEIN 6.9 gm/dL (6.4-8.2)
[2016-07-06 13:40] LABS: TROPONIN I < 0.015 ng/ml (<0.045)
[2016-07-06 14:05] LABS: URINE REFLEX COMMENT YES (NO); WBC 0-2 wbc/hpf (0-5)
[2016-07-06] MEDS ORDERED: CALCIUM + D3 E1 EACH PO (17:44)
[2016-07-06] MEDS ORDERED: MELATONIN10 M4 PO (17:45)
[2016-07-06] MEDS ORDERED: CLARITIN-D 24 H1 TAB PO (17:45)
[2016-07-06] MEDS ORDERED: NEURONTIN100 MG PO (17:46)
[2016-07-06] MEDS ORDERED: ZANTAC 150150 MG PO (17:47)
[2016-07-07 09:57] LABS: CKMB 1.7 ng/ml (0.5-3.6); CPK 109 U/L (26-192); LDH 176 U/L (84-246)
[2016-07-07 09:58] LABS: TROPONIN I < 0.015 ng/ml (<0.045)
[2016-07-08 06:57] LABS: BASO % 0.1 % (0.0-1.0); HEMATOCRIT 33.9 % (37.0-47.0); HEMOGLOBIN 10.9 g/dl (12.0-16.0); IG # 0.2 10*3/uL (0.0-0.1); LYMPH # 1.2 10*3/uL (1.3-4.4); LYMPH % 8.3 % (27.0-41.0); MEAN CELL VOLUME 89.7 fl (81.0-99.0); MEAN CORPUSCULAR HGB 28.8 pg (27.0-31.0); MEAN CORPUSCULAR HGB CONC 32.2 g/dl (33.0-37.0); MONO # 0.7 10*3/uL (0.1-1.0); MONO % 4.7 % (3.0-9.0); NEUT # 12.1 10*3/uL (2.3-7.9); NEUT % 85.2 % (47.0-73.0); PLATELET COUNT AUTOMATED 298 10*3/uL (130-400); RED BLOOD COUNT 3.78 10*6/uL (4.10-5.10); RED CELL DISTRI WIDTH 13.6 % (0-14.5); WHITE BLOOD COUNT 14.2 10*3/uL (4.8-10.8)
[2016-07-09 06:10] LABS: HEMATOCRIT 33.6 % (37.0-47.0); HEMOGLOBIN 10.7 g/dl (12.0-16.0); MEAN CELL VOLUME 91.1 fl (81.0-99.0); MEAN CORPUSCULAR HGB CONC 31.8 g/dl (33.0-37.0); MEAN PLATELET VOLUME 10.5 fl (9.6-12.3); PLATELET COUNT AUTOMATED 293 10*3/uL (130-400); RED BLOOD COUNT 3.69 10*6/uL (4.10-5.10); RED CELL DISTRI WIDTH 13.7 % (0-14.5); WHITE BLOOD COUNT 15.7 10*3/uL (4.8-10.8)
[2016-07-09 07:51] LABS: LYMPHOCYTE # 1.1 10*3/uL (1.3-4.4); METAMYELOCYTES 1 % (0-0); MONOCYTE # 1.3 10*3/uL (0.1-1.0); MYELOCYTES 1 % (0-0); NEUTROPHILS 83 % (47-73); PLATELET SUFFICIENCY NORMAL (NORMAL); TOTAL CELLS COUNTED 100 #CELLS
[2016-07-10 06:31] LABS: BUN 22 mg/dl (7-24); EST GLOM FILT AFRICAN AMERICAN > 60 ml/min
[2016-07-10 13:54] LABS: PROTHROMBIN TIME 10.3 SECONDS (9.0-12.4)
[2016-07-10 15:57] LABS: COL/EPI 155 SECONDS (86-157)
[2016-07-12 07:41] LABS: HEMATOCRIT 33.8 % (37.0-47.0); HEMOGLOBIN 10.8 g/dl (12.0-16.0); MEAN CELL VOLUME 89.4 fl (81.0-99.0); MEAN CORPUSCULAR HGB 28.6 pg (27.0-31.0); MEAN PLATELET VOLUME 10.1 fl (9.6-12.3); NUCLEATED RED BLOOD CELL 0.2 % (0.0-0.0); PLATELET COUNT AUTOMATED 308 10*3/uL (130-400); RED BLOOD COUNT 3.78 10*6/uL (4.10-5.10); RED CELL DISTRI WIDTH 13.5 % (0-14.5); WHITE BLOOD COUNT 10.4 10*3/uL (4.8-10.8)
[2016-07-12 08:01] LABS: METAMYELOCYTES 4 % (0-0); MONOCYTE # 0.3 10*3/uL (0.1-1.0); MYELOCYTES 2 % (0-0); NEUTROPHIL # 8.4 10*3/uL (2.3-7.9); NEUTROPHILS 81 % (47-73); PLATELET SUFFICIENCY NORMAL (NORMAL); TOTAL CELLS COUNTED 100 #CELLS
[2016-07-12 08:07] LABS: BUN 26 mg/dl (7-24); CARBON DIOXIDE 27 mmol/L (21-32); CHLORIDE 105 mmol/L (98-107); EST GLOM FILT AFRICAN AMERICAN > 60 ml/min; GLUCOSE 166 mg/dL (65-99); POTASSIUM 4.3 mmol/L (3.5-5.1); SODIUM 142 mmol/L (136-145)
[2016-07-12 15:09] LABS: ACID FAST SPEC PROCESSING Concentration (.)
[2016-07-13 06:12] LABS: HEMATOCRIT 32.2 % (37.0-47.0); HEMOGLOBIN 10.5 g/dl (12.0-16.0); MEAN CELL VOLUME 89.7 fl (81.0-99.0); MEAN CORPUSCULAR HGB 29.2 pg (27.0-31.0); MEAN CORPUSCULAR HGB CONC 32.6 g/dl (33.0-37.0); MEAN PLATELET VOLUME 10.1 fl (9.6-12.3); PLATELET COUNT AUTOMATED 309 10*3/uL (130-400); RED BLOOD COUNT 3.59 10*6/uL (4.10-5.10); RED CELL DISTRI WIDTH 13.6 % (0-14.5); WHITE BLOOD COUNT 11.9 10*3/uL (4.8-10.8)
[2016-07-13 06:37] LABS: BUN 22 mg/dl (7-24); CARBON DIOXIDE 28 mmol/L (21-32); CHLORIDE 109 mmol/L (98-107); EST GLOM FILT AFRICAN AMERICAN > 60 ml/min; GLUCOSE 121 mg/dL (65-99); POTASSIUM 4.4 mmol/L (3.5-5.1); SODIUM 144 mmol/L (136-145)
[2016-07-13 06:38] LABS: LYMPHOCYTE # 1.4 10*3/uL (1.3-4.4); METAMYELOCYTES 2 % (0-0); MONOCYTE # 0.5 10*3/uL (0.1-1.0); MYELOCYTES 2 % (0-0); NEUTROPHIL # 9.4 10*3/uL (2.3-7.9); NEUTROPHILS 79 % (47-73); PLATELET SUFFICIENCY NORMAL (NORMAL); PROMYELOCYTES 1 % (0-0); TOTAL CELLS COUNTED 100 #CELLS
[2016-07-13 20:31] LABS: CKMB 2.5 ng/ml (0.5-3.6); TROPONIN I 0.032 ng/ml (<0.045)
[2016-07-14 00:03] LABS: CKMB 2.4 ng/ml (0.5-3.6)
[2016-07-14 00:10] LABS: TROPONIN I 0.108 ng/ml (<0.045)
[2016-07-14 05:55] LABS: CKMB 1.7 ng/ml (0.5-3.6)
[2016-07-14 05:59] LABS: TROPONIN I 0.079 ng/ml (<0.045)
[2016-07-14 12:28] LABS: BUN 20 mg/dl (7-24); CARBON DIOXIDE 25 mmol/L (21-32); CHLORIDE 111 mmol/L (98-107); EST GLOM FILT AFRICAN AMERICAN > 60 ml/min; GLUCOSE 88 mg/dL (65-99); POTASSIUM 3.8 mmol/L (3.5-5.1); SODIUM 146 mmol/L (136-145)
== END 2016-07-14 16:38 | disposition short-term general hospital (02) | DRG 193 ==
LOC: ED 12:31 → EDHOLD 13:49 → 5E 13:49 → ICCU 07-13 20:14
PROVIDERS: Internal Medicine; Internal Medicine Critical Care Medicine; Nurse Practitioner Family; Student in an Organized Health Care Education/Training Program
PROC: 0BC18ZZ Extirpation of Matter from Trachea, Via Natural or Artificial Opening Endoscopic (ICD-10-PCS; principal; 2016-07-11)
PROC: 0BC48ZZ Extirpation of Matter from Right Upper Lobe Bronchus, Via Natural or Artificial Opening Endoscopic (ICD-10-PCS; principal; 2016-07-11)
PROC: 0BCB8ZZ Extirpation of Matter from Left Lower Lobe Bronchus, Via Natural or Artificial Opening Endoscopic (ICD-10-PCS; principal; 2016-07-11)
PROC: 0BC98ZZ Extirpation of Matter from Lingula Bronchus, Via Natural or Artificial Opening Endoscopic (ICD-10-PCS; principal; 2016-07-11)
PROC: 0BC28ZZ Extirpation of Matter from Carina, Via Natural or Artificial Opening Endoscopic (ICD-10-PCS; principal; 2016-07-11)
PROC: 0BC68ZZ Extirpation of Matter from Right Lower Lobe Bronchus, Via Natural or Artificial Opening Endoscopic (ICD-10-PCS; principal; 2016-07-11)
PROC: 0BC88ZZ Extirpation of Matter from Left Upper Lobe Bronchus, Via Natural or Artificial Opening Endoscopic (ICD-10-PCS; principal; 2016-07-11)
PROC: 0BC58ZZ Extirpation of Matter from Right Middle Lobe Bronchus, Via Natural or Artificial Opening Endoscopic (ICD-10-PCS; principal; 2016-07-11)
PROC: 0BC38ZZ Extirpation of Matter from Right Main Bronchus, Via Natural or Artificial Opening Endoscopic (ICD-10-PCS; principal; 2016-07-11)
PROC: 0BC78ZZ Extirpation of Matter from Left Main Bronchus, Via Natural or Artificial Opening Endoscopic (ICD-10-PCS; principal; 2016-07-11)
PROC: 0DJD8ZZ Inspection of Lower Intestinal Tract, Via Natural or Artificial Opening Endoscopic (ICD-10-PCS; 2016-07-13)
PROC: 0DB68ZX Excision of Stomach, Via Natural or Artificial Opening Endoscopic, Diagnostic (ICD-10-PCS; 2016-07-13)
DX: J18.0 Bronchopneumonia, unspecified organism (principal); J96.90 Respiratory failure, unspecified, unspecified whether with hypoxia or hypercapnia; I95.9 Hypotension, unspecified; T17.590A Other foreign object in bronchus causing asphyxiation, initial encounter; R04.2 Hemoptysis; D64.9 Anemia, unspecified; J44.0 Chronic obstructive pulmonary disease with (acute) lower respiratory infection; J44.1 Chronic obstructive pulmonary disease with (acute) exacerbation; E78.5 Hyperlipidemia, unspecified; M81.0 Age-related osteoporosis without current pathological fracture; M17.11 Unilateral primary osteoarthritis, right knee; I12.9 Hypertensive chronic kidney disease with stage 1 through stage 4 chronic kidney disease, or unspecified chronic kidney disease; N18.9 Chronic kidney disease, unspecified; F32.9 Major depressive disorder, single episode, unspecified; I73.9 Peripheral vascular disease, unspecified; G47.00 Insomnia, unspecified; M79.605 Pain in left leg; M25.552 Pain in left hip; J20.9 Acute bronchitis, unspecified; I25.118 Atherosclerotic heart disease of native coronary artery with other forms of angina pectoris; D72.829 Elevated white blood cell count, unspecified; T38.0X5A Adverse effect of glucocorticoids and synthetic analogues, initial encounter; T39.015A Adverse effect of aspirin, initial encounter; R10.13 Epigastric pain; K21.0 Gastro-esophageal reflux disease with esophagitis; K44.9 Diaphragmatic hernia without obstruction or gangrene; K29.60 Other gastritis without bleeding; Z88.0 Allergy status to penicillin; Z88.4 Allergy status to anesthetic agent; Z88.8 Allergy status to other drugs, medicaments and biological substances; I25.2 Old myocardial infarction; Z87.01 Personal history of pneumonia (recurrent); Z90.710 Acquired absence of both cervix and uterus; Z95.818 Presence of other cardiac implants and grafts; Z87.891 Personal history of nicotine dependence; Z80.8 Family history of malignant neoplasm of other organs or systems; Z82.49 Family history of ischemic heart disease and other diseases of the circulatory system; Z83.3 Family history of diabetes mellitus

== ENCOUNTER → 2016-10-03 | Outpatient (CLI) | payer OTHER ==
[~2016-10-03] MED LIST changes: +CALCIUM + D3 E1 EACH PO; +CLARITIN-D 24 H1 TAB PO; +MELATONIN10 M4 PO; +NEURONTIN100 MG PO; +ZANTAC 150150 MG PO
== END | disposition home or self-care (01) ==
LOC: US 12:44
DX: I70.213 Atherosclerosis of native arteries of extremities with intermittent claudication, bilateral legs (principal); R06.00 Dyspnea, unspecified; I10 Essential (primary) hypertension; J44.9 Chronic obstructive pulmonary disease, unspecified; J45.909 Unspecified asthma, uncomplicated; Z95.5 Presence of coronary angioplasty implant and graft

== ENCOUNTER 2016-11-14 10:42 | Emergency (ER) | payer OTHER ==
[~2016-11-14] VITALS: Ht 157.4 cm; Wt 77.1 kg
[2016-11-14] MEDS ORDERED: HYDROCODONE BIT1 T11 PO (10:58)
[2016-11-14 11:24] LABS: BILIRUBIN NEGATIVE (NEGATIVE); BLOOD NEGATIVE (NEGATIVE); CLARITY CLEAR (CLEAR); COLOR YELLOW (YELLOW); GLUCOSE NEGATIVE (NEGATIVE); KETONE NEGATIVE (NEGATIVE); LEUKO ESTERASE TRACE (NEGATIVE); NITRITE POSITIVE (NEGATIVE); PROTEIN NEGATIVE (NEGATIVE); UROBILINOGEN 0.2 E.U./dl (0.2-1.0)
[2016-11-14 11:37] LABS: BACTERIA 1+; URINE REFLEX COMMENT YES (NO)
[2016-11-14] MEDS ORDERED: BACTRIM DS 8001 TA1 PO (11:47)
[2016-11-14] MEDS ORDERED: PYRIDIUM200 M1 PO (11:47)
[2016-11-14 12:32] VITALS: BP 131/76
== END 2016-11-14 13:04 | disposition home or self-care (01) ==
LOC: ED 10:42
PROVIDERS: Nurse Practitioner Family
DX: N39.0 Urinary tract infection, site not specified (principal); I10 Essential (primary) hypertension; I25.10 Atherosclerotic heart disease of native coronary artery without angina pectoris; M81.0 Age-related osteoporosis without current pathological fracture; I25.2 Old myocardial infarction; J44.9 Chronic obstructive pulmonary disease, unspecified; E78.5 Hyperlipidemia, unspecified; Z87.891 Personal history of nicotine dependence; Z87.442 Personal history of urinary calculi; Z88.0 Allergy status to penicillin; Z88.8 Allergy status to other drugs, medicaments and biological substances; Z79.82 Long term (current) use of aspirin; Z79.899 Other long term (current) drug therapy

== ENCOUNTER → 2016-11-23 | Outpatient (CLI) | payer OTHER ==
[~2016-11-23] MED LIST changes: +PYRIDIUM200 M1 PO
== END | disposition home or self-care (01) ==
LOC: RAD 11:38
DX: S33.141A Dislocation of L4/L5 lumbar vertebra, initial encounter (principal); M41.86 Other forms of scoliosis, lumbar region; R10.11 Right upper quadrant pain; X58.XXXA Exposure to other specified factors, initial encounter; Y93.89 Activity, other specified; Y92.89 Other specified places as the place of occurrence of the external cause; Y99.8 Other external cause status

== ENCOUNTER → 2016-12-06 | Outpatient (CLI) | payer OTHER | END | disposition home or self-care (01) | LOC: US 09:14 | DX: D35.02 Benign neoplasm of left adrenal gland (principal); N28.1 Cyst of kidney, acquired ==

== ENCOUNTER → 2017-03-29 | Outpatient (CLI) | payer OTHER ==
[2017-03-29 10:46] LABS: THYROID STIM HORMONE (HS) 0.666 uIU/ml (0.358-4.75)
== END | disposition home or self-care (01) ==
LOC: LAB 09:55
PROVIDERS: Internal Medicine
DX: Z11.2 Encounter for screening for other bacterial diseases (principal); E78.5 Hyperlipidemia, unspecified; I10 Essential (primary) hypertension; W57.XXXA Bitten or stung by nonvenomous insect and other nonvenomous arthropods, initial encounter

== ENCOUNTER 2017-07-01 18:54 | Emergency (ER) | payer OTHER ==
[~2017-07-01] VITALS: Ht 157.4 cm; Wt 77.1 kg
--- NOTE | ~2017-07-01 | EKG ---
[place], [place] ELECTROCARDIOGRAM REPORT NAME: REJI MENDOSA UNIT #: [id number] ROOM: DOCTOR: JOEL BROOKS,IZA BIRTHDATE: [birth year] DOS: 07/01/2017 TIME: 1857 hours IMPRESSION: 1. Sinus rhythm. 2. Sinus tachycardia. 3. Baseline artifacts. 4. Old inferior infarction. IZA MALDONADO MD CM:EKGRPT:ELECTROCARDIOGRAM REPORT 1149 1219 IZA MALDONADO MD
[2017-07-01] MEDS ORDERED: ATORVASTATIN CA10 M1 PO (19:08)
[2017-07-01] MEDS ORDERED: AVPAK AZITHROM250 M1 PO (19:08)
[2017-07-01] MEDS ORDERED: METHYLPRED-DP4 MG PO (19:09)
[2017-07-01] MEDS ORDERED: CO Q-1050 M1 PO (19:10)
[2017-07-01 19:15] LABS: BASO # 0.1 10*3/uL (0.0-0.1); BASO % 0.9 % (0.0-1.0); HEMATOCRIT 38.7 % (37.0-47.0); HEMOGLOBIN 12.2 g/dl (12.0-16.0); LYMPH # 1.1 10*3/uL (1.3-4.4); LYMPH % 12.8 % (27.0-41.0); MEAN CELL VOLUME 90.4 fl (81.0-99.0); MEAN CORPUSCULAR HGB 28.5 pg (27.0-31.0); MEAN CORPUSCULAR HGB CONC 31.5 g/dl (33.0-37.0); MONO # 0.1 10*3/uL (0.1-1.0); MONO % 1.2 % (3.0-9.0); NEUT # 7.5 10*3/uL (2.3-7.9); NEUT % 84.3 % (47.0-73.0); PLATELET COUNT AUTOMATED 272 10*3/uL (130-400); RED BLOOD COUNT 4.28 10*6/uL (4.10-5.10); RED CELL DISTRI WIDTH 13.6 % (0-14.5); WHITE BLOOD COUNT 8.9 10*3/uL (4.8-10.8)
[2017-07-01 19:27] LABS: ACT PARTIAL THROMBO TIME 22.7 SECONDS (20.8-31.5); INTERNATIONAL NORM RATIO 0.9 (2.0-3.5)
[2017-07-01 19:31] LABS: ALBUMIN 3.7 gm/dl (3.1-4.5); ALKALINE PHOSPHATASE 104 U/L (45-117); BUN 17 mg/dl (7-24); CHLORIDE 108 mmol/L (98-107); CREATININE 1.09 mg/dL (0.55-1.02); POTASSIUM 3.6 mmol/L (3.5-5.1); SGOT/AST 21 IU/L (3-35); SGPT/ALT 30 U/L (12-78); SODIUM 142 mmol/L (136-145); TOTAL PROTEIN 7.1 gm/dL (6.4-8.2)
[2017-07-01 19:35] LABS: TROPONIN I < 0.015 ng/ml (<0.045)
[2017-07-01 21:06] VITALS: BP 132/84
== END 2017-07-01 21:43 | disposition home or self-care (01) ==
LOC: ED 18:54
PROVIDERS: Student in an Organized Health Care Education/Training Program
DX: F43.8 Other reactions to severe stress (principal); I25.10 Atherosclerotic heart disease of native coronary artery without angina pectoris; E78.5 Hyperlipidemia, unspecified; I10 Essential (primary) hypertension; I25.2 Old myocardial infarction; Z98.890 Other specified postprocedural states; Z90.710 Acquired absence of both cervix and uterus; Z87.891 Personal history of nicotine dependence; Z79.82 Long term (current) use of aspirin; Z79.899 Other long term (current) drug therapy; Z88.0 Allergy status to penicillin; Z88.4 Allergy status to anesthetic agent; Z88.6 Allergy status to analgesic agent

== ENCOUNTER 2018-01-25 12:33 | Emergency (ER) | payer OTHER ==
[~2018-01-25 12:33] MED LIST changes: +ATORVASTATIN CA10 M1 PO; +AVPAK AZITHROM250 M1 PO; +CO Q-1050 M1 PO; +METHYLPRED-DP4 MG PO
[2018-01-25 12:34] VITALS: BP 165/76
[2018-01-25 12:56] LABS: BILIRUBIN NEGATIVE (NEGATIVE); BLOOD NEGATIVE (NEGATIVE); CLARITY SL CLOUDY (CLEAR); COLOR YELLOW (YELLOW); GLUCOSE NEGATIVE (NEGATIVE); KETONE NEGATIVE (NEGATIVE); LEUKO ESTERASE NEGATIVE (NEGATIVE); NITRITE NEGATIVE (NEGATIVE); SPECIFIC GRAVITY <= 1.005 (1.005-1.030); UROBILINOGEN 0.2 E.U./dl (0.2-1.0)
[2018-01-25 13:02] LABS: BASO # 0.1 10*3/uL (0.0-0.1); BASO % 1.5 % (0.0-1.0); EOS # 0.2 10*3/uL (0.0-0.4); EOS % 2.8 % (1.0-4.0); HEMATOCRIT 39.6 % (37.0-47.0); HEMOGLOBIN 12.3 g/dl (12.0-16.0); LYMPH # 1.7 10*3/uL (1.3-4.4); LYMPH % 25.5 % (27.0-41.0); MEAN CELL VOLUME 90.2 fl (81.0-99.0); MEAN CORPUSCULAR HGB CONC 31.1 g/dl (33.0-37.0); MEAN PLATELET VOLUME 10.6 fl (9.6-12.3); MONO # 0.6 10*3/uL (0.1-1.0); NEUT # 4.1 10*3/uL (2.3-7.9); NEUT % 60.8 % (47.0-73.0); PLATELET COUNT AUTOMATED 283 10*3/uL (130-400); RED BLOOD COUNT 4.39 10*6/uL (4.10-5.10); WHITE BLOOD COUNT 6.8 10*3/uL (4.8-10.8)
[2018-01-25 13:09] LABS: EPITHELIAL CELLS 0-2; RBC 0-2 rbc/hpf (0-2); WBC 0-2 wbc/hpf (0-5)
[2018-01-25 13:18] LABS: ALBUMIN 4.1 gm/dl (3.1-4.5); ALKALINE PHOSPHATASE 87 U/L (45-117); BUN 19 mg/dl (7-24); CHLORIDE 107 mmol/L (98-107); CREATININE 1.04 mg/dL (0.55-1.02); LIPASE 174 U/L (73-393); POTASSIUM 4.4 mmol/L (3.5-5.1); SGOT/AST 15 IU/L (3-35); SGPT/ALT 22 U/L (12-78); SODIUM 141 mmol/L (136-145); TOTAL PROTEIN 7.4 gm/dL (6.4-8.2)
== END 2018-01-25 14:28 | disposition home or self-care (01) ==
LOC: ED 12:33
PROVIDERS: Emergency Medicine
DX: R10.31 Right lower quadrant pain (principal); I25.10 Atherosclerotic heart disease of native coronary artery without angina pectoris; J44.9 Chronic obstructive pulmonary disease, unspecified; E78.5 Hyperlipidemia, unspecified; I10 Essential (primary) hypertension; I25.2 Old myocardial infarction; M81.0 Age-related osteoporosis without current pathological fracture; Z88.0 Allergy status to penicillin; Z88.8 Allergy status to other drugs, medicaments and biological substances; Z88.4 Allergy status to anesthetic agent; Z79.899 Other long term (current) drug therapy; Z79.82 Long term (current) use of aspirin; Z79.2 Long term (current) use of antibiotics; Z87.891 Personal history of nicotine dependence

== ENCOUNTER 2018-04-20 19:49 | Emergency (ER) | payer OTHER ==
[~2018-04-20] VITALS: Ht 157.4 cm; Wt 77.1 kg
--- NOTE | ~2018-04-20 | EKG ---
[place], [place] ELECTROCARDIOGRAM REPORT NAME: REJI MENDOSA UNIT #: [id number] ROOM: DOCTOR: EPIPHANY DRAFT REPORT BIRTHDATE: [birth year] [facility] Test Date: 2018-04-20 Test Time: 19:56:02 Pat Name: REJI MENDOSA Department: Room: Gender: F Cargo Handler: Neal Bradley : 1945 Requested By: SIXTO SHEA Order Number: [id number] Reading MD: Grover Vieira MD Measurements Intervals [place] Rate: 100 P: 73 [place]: 152 QRS: 70 QRSD: 77 T: 57 QT: 353 QTc: 456 Interpretive Statements Sinus tachycardia Normal ECG Electronically Signed On 04-21-2018 7:12:12 PST by Grover Vieira MD CM:EKGRPT:ELECTROCARDIOGRAM REPORT 55 1 SIXTO GOMEZ DRAFT REPORT SIXTO SHEA DO
--- NOTE | ~2018-04-20 | EKG ---
[place], [place] ELECTROCARDIOGRAM REPORT NAME: REJI MENDOSA UNIT #: [id number] ROOM: DOCTOR: CORBY DRAFT REPORT BIRTHDATE: [birth year] [facility] Test Date: 2018-04-20 Test Time: 22:40:23 Pat Name: REJI MENDOSA Department: Room: Gender: F Machine Mover: Neal Bradley : 1945 Requested By: SIXTO SHEA Order Number: [id number] Reading MD: Grover Vieira MD Measurements Intervals [place] Rate: 74 P: 79 [place]: 167 QRS: 58 QRSD: 78 T: 58 QT: 404 QTc: 449 Interpretive Statements Sinus rhythm Abnormal R-wave progression, early transition Electronically Signed On 04-21-2018 7:13:31 PST by Grover Vieira MD CM:EKGRPT:ELECTROCARDIOGRAM REPORT 2240 0713 SIXTO GOMEZ DRAFT REPORT SIXTO SHEA DO
[2018-04-20 20:12] LABS: BASO # 0.1 10*3/uL (0.0-0.1); EOS # 0.2 10*3/uL (0.0-0.4); EOS % 1.6 % (1.0-4.0); HEMATOCRIT 36.7 % (37.0-47.0); HEMOGLOBIN 11.7 g/dl (12.0-16.0); LYMPH # 2.1 10*3/uL (1.3-4.4); LYMPH % 20.3 % (27.0-41.0); MEAN CORPUSCULAR HGB 28.7 pg (27.0-31.0); MEAN CORPUSCULAR HGB CONC 31.9 g/dl (33.0-37.0); MEAN PLATELET VOLUME 11.1 fl (9.6-12.3); MONO # 0.8 10*3/uL (0.1-1.0); MONO % 7.8 % (3.0-9.0); NEUT # 7.1 10*3/uL (2.3-7.9); NEUT % 68.6 % (47.0-73.0); PLATELET COUNT AUTOMATED 250 10*3/uL (130-400); RED BLOOD COUNT 4.08 10*6/uL (4.10-5.10); RED CELL DISTRI WIDTH 13.4 % (0-14.5); WHITE BLOOD COUNT 10.3 10*3/uL (4.8-10.8)
[2018-04-20 20:50] LABS: ACT PARTIAL THROMBO TIME 22.6 SECONDS (20.8-31.5); INTERNATIONAL NORM RATIO 0.9 (2.0-3.5)
[2018-04-20 20:52] LABS: ALBUMIN 3.2 gm/dl (3.1-4.5); ALKALINE PHOSPHATASE 107 U/L (45-117); BUN 20 mg/dl (7-24); CHLORIDE 106 mmol/L (98-107); CREATININE 1.16 mg/dL (0.55-1.02); POTASSIUM 3.7 mmol/L (3.5-5.1); SGOT/AST 23 IU/L (3-35); SGPT/ALT 42 U/L (12-78); SODIUM 141 mmol/L (136-145); TOTAL PROTEIN 6.4 gm/dL (6.4-8.2)
[2018-04-20 20:53] LABS: TROPONIN I < 0.015 ng/ml (<0.045)
[2018-04-20 22:37] VITALS: BP 107/53
== END 2018-04-20 23:02 | disposition home or self-care (01) ==
LOC: ED 19:49
PROVIDERS: Student in an Organized Health Care Education/Training Program
DX: R68.84 Jaw pain (principal); M79.603 Pain in arm, unspecified; R51 Headache; M54.6 Pain in thoracic spine; I25.10 Atherosclerotic heart disease of native coronary artery without angina pectoris; J44.9 Chronic obstructive pulmonary disease, unspecified; E78.5 Hyperlipidemia, unspecified; I25.2 Old myocardial infarction; I10 Essential (primary) hypertension; Z88.0 Allergy status to penicillin; Z88.4 Allergy status to anesthetic agent; Z88.8 Allergy status to other drugs, medicaments and biological substances; Z79.899 Other long term (current) drug therapy; Z79.82 Long term (current) use of aspirin; Z87.891 Personal history of nicotine dependence

== ENCOUNTER → 2018-08-06 | Outpatient (CLI) | payer OTHER ==
[~2018-08-06] MED LIST changes: +AKTOB 5 ML5 ML OU; +AMLODIPINE BESYL5 MG PO; -CALCIUM + D3 E1 EACH PO; +CALCIUM 500 +1 EAC1 PO; +CO Q-10200 MG PO; +FUROSEMIDE20 M1 PO; +NITROSTAT0.4 MG SL; +SENNA LAX8.6 M1 PO; +Tobrex Ophth S2.5 ML OPH; -ZANTAC 150150 MG PO; +ZYRTEC10 MG PO
== END | disposition home or self-care (01) ==
LOC: RAD 10:51
DX: M25.511 Pain in right shoulder (principal)

== ENCOUNTER 2018-12-05 10:09 | Emergency (ER) | payer OTHER ==
[~2018-12-05] VITALS: Ht 157.4 cm; Wt 75.3 kg
[~2018-12-05 10:09] MED LIST changes: -AKTOB 5 ML5 ML OU; -AMLODIPINE BESYL5 MG PO; -CO Q-10200 MG PO; -FUROSEMIDE20 M1 PO; -SENNA LAX8.6 M1 PO; -Tobrex Ophth S2.5 ML OPH; -ZYRTEC10 MG PO
[2018-12-05 10:11] VITALS: BP 155/69
[2018-12-05] MEDS ORDERED: Tobrex Ophth S2.5 ML OPH (10:35)
[2018-12-05] MEDS ORDERED: ZYRTEC10 MG PO (10:35)
[2018-12-11] MEDS ORDERED: AKTOB 5 ML5 ML OU (15:42)
[2018-12-11] MEDS ORDERED: CO Q-10200 MG PO (16:05)
[2018-12-11] MEDS ORDERED: SENNA LAX8.6 M1 PO (16:06)
[2018-12-11] MEDS ORDERED: CO Q-1050 M1 PO (16:07)
[2018-12-11] MEDS ORDERED: ZANTAC 7575 M1 PO (16:26)
== END 2018-12-05 10:40 | disposition home or self-care (01) ==
LOC: ED 10:09
DX: H10.9 Unspecified conjunctivitis (principal); Z88.0 Allergy status to penicillin; Z88.4 Allergy status to anesthetic agent; Z88.8 Allergy status to other drugs, medicaments and biological substances; Z79.899 Other long term (current) drug therapy; Z79.82 Long term (current) use of aspirin; Z90.710 Acquired absence of both cervix and uterus; Z90.49 Acquired absence of other specified parts of digestive tract; Z87.891 Personal history of nicotine dependence

== ENCOUNTER → 2019-01-09 | Outpatient (CLI) | payer OTHER ==
[~2019-01-09] MED LIST changes: +AKTOB 5 ML5 ML OU; +AMLODIPINE BESYL5 MG PO; +CO Q-10200 MG PO; +FUROSEMIDE20 M1 PO; +SENNA LAX8.6 M1 PO; +Tobrex Ophth S2.5 ML OPH; +ZYRTEC10 MG PO
== END | disposition home or self-care (01) ==
LOC: RAD 11:54
DX: J44.9 Chronic obstructive pulmonary disease, unspecified (principal); K44.9 Diaphragmatic hernia without obstruction or gangrene; R09.02 Hypoxemia

== ENCOUNTER 2019-05-13 20:05 | Emergency (ER) | payer OTHER ==
[~2019-05-13] VITALS: Ht 157.4 cm; Wt 75.7 kg
[2019-05-13 20:12] VITALS: BP 163/88
[2019-05-13 21:49] LABS: ALBUMIN 3.7 gm/dl (3.1-4.5); ALKALINE PHOSPHATASE 108 U/L (45-117); BUN 20 mg/dl (7-24); CHLORIDE 104 mmol/L (98-107); CREATININE 1.39 mg/dL (0.55-1.02); POTASSIUM 5.5 mmol/L (3.5-5.1); SGOT/AST 53 IU/L (3-35); SGPT/ALT 47 U/L (12-78); SODIUM 136 mmol/L (136-145); TOTAL PROTEIN 7.4 gm/dL (6.4-8.2); TROPONIN I < 0.015 ng/ml (<0.045)
[2019-05-13 22:07] LABS: BILIRUBIN NEGATIVE (NEGATIVE); BLOOD 1+ (NEGATIVE); CLARITY CLEAR (CLEAR); COLOR YELLOW (YELLOW); GLUCOSE NEGATIVE (NEGATIVE); KETONE NEGATIVE (NEGATIVE); LEUKO ESTERASE TRACE (NEGATIVE); NITRITE NEGATIVE (NEGATIVE); SPECIFIC GRAVITY 1.015 (1.005-1.030); UROBILINOGEN 0.2 E.U./dl (0.2-1.0)
[2019-05-13 22:23] LABS: BACTERIA 1+
[2019-05-13 22:54] LABS: BASO % 0.3 % (0.0-1.0); EOS % 0.1 % (1.0-4.0); LYMPH # 1.1 10*3/uL (1.3-4.4); LYMPH % 14.6 % (27.0-41.0); MEAN CELL VOLUME 88.2 fl (81.0-99.0); MEAN CORPUSCULAR HGB 27.1 pg (27.0-31.0); MEAN CORPUSCULAR HGB CONC 30.8 g/dl (33.0-37.0); MEAN PLATELET VOLUME 12.1 fl (9.6-12.3); MONO # 0.3 10*3/uL (0.1-1.0); MONO % 3.9 % (3.0-9.0); NEUT % 80.2 % (47.0-73.0); PLATELET COUNT AUTOMATED 309 10*3/uL (130-400); RED BLOOD COUNT 4.42 10*6/uL (4.10-5.10); RED CELL DISTRI WIDTH 13.2 % (0-14.5); WHITE BLOOD COUNT 7.4 10*3/uL (4.8-10.8)
== END 2019-05-13 23:45 | disposition home or self-care (01) ==
LOC: ED 20:05
PROVIDERS: Emergency Medicine
DX: R20.2 Paresthesia of skin (principal); R20.0 Anesthesia of skin; R68.83 Chills (without fever); T45.0X5A Adverse effect of antiallergic and antiemetic drugs, initial encounter; I25.10 Atherosclerotic heart disease of native coronary artery without angina pectoris; J44.9 Chronic obstructive pulmonary disease, unspecified; E78.5 Hyperlipidemia, unspecified; I10 Essential (primary) hypertension; I25.2 Old myocardial infarction; M81.0 Age-related osteoporosis without current pathological fracture; K21.9 Gastro-esophageal reflux disease without esophagitis; Z79.899 Other long term (current) drug therapy; Z88.0 Allergy status to penicillin; Z88.4 Allergy status to anesthetic agent; Z88.8 Allergy status to other drugs, medicaments and biological substances; Z87.891 Personal history of nicotine dependence; Y92.89 Other specified places as the place of occurrence of the external cause

== ENCOUNTER 2019-12-25 14:11 | Emergency (ER) | payer OTHER ==
[~2019-12-25] VITALS: Wt 80.7 kg
[2019-12-25 14:23] VITALS: BP 127/61
[2019-12-25 14:48] LABS: BASO # 0.1 10*3/uL (0.0-0.1); BASO % 1.2 % (0.0-1.0); EOS # 0.2 10*3/uL (0.0-0.4); EOS % 2.1 % (1.0-4.0); HEMATOCRIT 36.9 % (37.0-47.0); MEAN CELL VOLUME 88.1 fl (81.0-99.0); MEAN CORPUSCULAR HGB 27.2 pg (27.0-31.0); MEAN CORPUSCULAR HGB CONC 30.9 g/dl (33.0-37.0); MEAN PLATELET VOLUME 10.6 fl (9.6-12.3); MONO # 0.9 10*3/uL (0.1-1.0); MONO % 8.7 % (3.0-9.0); NEUT # 6.6 10*3/uL (2.3-7.9); NEUT % 67.4 % (47.0-73.0); PLATELET COUNT AUTOMATED 300 10*3/uL (130-400); RED BLOOD COUNT 4.19 10*6/uL (4.10-5.10); RED CELL DISTRI WIDTH 13.2 % (0-14.5); WHITE BLOOD COUNT 9.9 10*3/uL (4.8-10.8)
[2019-12-25 14:59] LABS: ACT PARTIAL THROMBO TIME 26.1 SECONDS (20.0-32.1)
[2019-12-25 15:04] LABS: ALBUMIN 3.5 gm/dl (3.1-4.5); ALKALINE PHOSPHATASE 121 U/L (45-117); BUN 17 mg/dl (7-24); CHLORIDE 105 mmol/L (98-107); CREATININE 0.96 mg/dL (0.55-1.02); LIPASE 124 U/L (73-393); POTASSIUM 4.4 mmol/L (3.5-5.1); SGOT/AST 18 IU/L (3-35); SGPT/ALT 28 U/L (12-78); SODIUM 138 mmol/L (136-145); TOTAL PROTEIN 6.9 gm/dL (6.4-8.2)
[2019-12-25 15:08] LABS: TROPONIN I < 0.015 ng/ml (<0.045)
[2019-12-25] MEDS ORDERED: ZOFRAN4 MG PO (18:13)
== END 2019-12-25 18:17 | disposition home or self-care (01) ==
LOC: ED 14:11
PROVIDERS: Emergency Medicine
DX: S06.0X0A Concussion without loss of consciousness, initial encounter (principal); S81.011A Laceration without foreign body, right knee, initial encounter; Z87.891 Personal history of nicotine dependence; Z90.710 Acquired absence of both cervix and uterus; Z79.899 Other long term (current) drug therapy; Z88.0 Allergy status to penicillin; Z88.4 Allergy status to anesthetic agent; Z88.6 Allergy status to analgesic agent; W01.0XXA Fall on same level from slipping, tripping and stumbling without subsequent striking against object, initial encounter; Y93.89 Activity, other specified; Y92.89 Other specified places as the place of occurrence of the external cause; Y99.9 Unspecified external cause status

== ENCOUNTER → 2020-01-08 | Outpatient (CLI) | payer OTHER ==
[~2020-01-08] MED LIST changes: +ZOFRAN4 MG PO
== END | disposition home or self-care (01) ==
LOC: RAD 13:12
PROVIDERS: ATTEND Internal Medicine
DX: M77.32 Calcaneal spur, left foot (principal)

== ENCOUNTER 2020-01-12 06:47 | Emergency (ER) | payer OTHER ==
[~2020-01-12] VITALS: Ht 157.4 cm; Wt 80.7 kg
[2020-01-12 06:55] VITALS: BP 158/77
[2020-01-12] MEDS ORDERED: KEFLEX500 M1 PO (08:15)
== END 2020-01-12 08:36 | disposition home or self-care (01) ==
LOC: ED 06:47
DX: M13.861 Other specified arthritis, right knee (principal); L03.116 Cellulitis of left lower limb; Z88.0 Allergy status to penicillin; Z88.8 Allergy status to other drugs, medicaments and biological substances; Z79.899 Other long term (current) drug therapy; Z87.891 Personal history of nicotine dependence

== ENCOUNTER → 2020-01-28 | Outpatient (CLI) | payer OTHER ==
[~2020-01-28] MED LIST changes: +KEFLEX500 M1 PO
== END | disposition home or self-care (01) ==
LOC: RAD 13:27
PROVIDERS: ATTEND Internal Medicine
DX: M85.89 Other specified disorders of bone density and structure, multiple sites (principal); Z78.0 Asymptomatic menopausal state